=== PATIENT | female | born 1950 | race Caucasian/White ===

== ENCOUNTER 2018-08-07 22:35 | Inpatient (IN) | payer MEDICARE, BC ==
[~2018-08-07] VITALS: Ht 154.9 cm; Wt 79.8 kg
[~2018-08-07 22:35] MED LIST: BACTRIM-DS1 EA ORAL; VANCOMYCIN1 GM/2502 IVPB; VIBRAMYCIN100 MG ORAL
[2018-08-07] MEDS ORDERED: Sodium Chloride 500ML 500 ML IV ONE (23:04)
--- NOTE | 2018-08-07 23:06 | Emergency Room Report ---
History of Present Illness General Chief Complaint: Abdominal Pain Source: Patient Present Illness HPI Patient is a 67-year-old female who presented after increased abdominal discomfort. Patient present increased abdominal distention associated with shortness of breath. She reports having increased anxiety. Patient prior history of chronic anxiety. Patient states that she normally takes marijuana Anable's daily. She reports having increased nausea as well as abdominal discomfort. She had not been having any fever Allergies: Coded Allergies: No Known Allergies (Unverified , 08/13/14) Patient History Past Medical History: see triage record Reviewed Nursing Documentation: PMH: Agreed; PSxH: Agreed Nursing Documentation-PMH Past Medical History: No History, Except For Review of Systems All Other Systems: negative except mentioned in HPI Physical Exam Vital Signs Date Time Temp Pulse Resp B/P (MAP) Pulse Ox O2 Delivery O2 Flow Rate FiO2 08/07/18 22:34 97.5 101 18 115/57 98 Room Air Sp02 EP Interpretation: reviewed, normal General Appearance: normal inspection, well appearing, no apparent distress, alert, GCS 15 Head: atraumatic ENT: normal ENT inspection, hearing grossly normal, normal voice Neck: normal inspection, full range of motion, supple, no bony tend Respiratory: normal inspection, lungs clear, normal breath sounds, no respiratory distress, no retraction, no wheezing Cardiovascular #1: regular rate, rhythm, no edema Gastrointestinal: normal inspection, normal bowel sounds, non tender, soft, no guarding, no hernia, distended Genitourinary: no CVA tenderness Musculoskeletal: normal inspection, back normal, normal range of motion Neurologic: normal inspection, alert, oriented x3, responsive, legislative aide III-XII nml as tested, speech normal Psychiatric: normal inspection, judgement/insight normal, mood/affect normal Skin: normal inspection, normal color, no rash Medical Decision Making Diagnostic Impression: Primary Impression: Pancreatitis ER Course Patient presented for abdominal pain. Differential diagnoses included ischemic bowel, appendicitis, perforated viscus, abdominal aortic aneurysm, pancreatitis , inferior myocardial infarction, viral gastroenteritis. Because of complexity of patient's case laboratory testing and imaging studies were ordered. The patient presented for increased abdominal distention and abdominal pain. The patient's was noted to have prior history of irritable bowel. The patient was given IV fluids as well as IV pain medications.The patient was given IV the antiemetics and pain medications with some improvement in her symptoms. The patient stated that she has a occasional hypoglycemic episodes as well as anxiety. She does report occasional edible marijuana use as well as patient denies any prior episodes of gallstones. The patient states that she eats a low-fat diet at baseline and eats 5-[address] Calvin Escalera was contacted for inpatient management due to panel physician. Dr. Moon was contacted for surgical evaluation. Labs Test 08/07/18 23:10 08/08/18 01:20 White Blood Count 7.8 K/UL (4.8-10.8) Red Blood Count 5.16 M/UL (4.20-5.40) Hemoglobin 15.9 G/DL (12.0-16.0) Hematocrit 45.6 % (37.0-47.0) Mean Corpuscular Volume 88 FL (80-99) Mean Corpuscular Hemoglobin 30.7 PG (27.0-31.0) Mean Corpuscular Hemoglobin Concent 34.8 G/DL (32.0-36.0) Red Cell Distribution Width 10.1 % (11.6-14.8) Platelet Count 148 K/UL (150-450) Mean Platelet Volume 11.2 FL (6.5-10.1) Neutrophils (%) (Auto) 66.6 % (45.0-75.0) Lymphocytes (%) (Auto) 24.4 % (20.0-45.0) Monocytes (%) (Auto) 7.3 % (1.0-10.0) Eosinophils (%) (Auto) 1.0 % (0.0-3.0) Basophils (%) (Auto) 0.7 % (0.0-2.0) Sodium Level 142 MMOL/L (136-145) Potassium Level 3.6 MMOL/L (3.5-5.1) Chloride Level 104 MMOL/L (98-107) Carbon Dioxide Level 27 MMOL/L (21-32) Anion Gap 12 mmol/L (5-15) Blood Urea Nitrogen 13 mg/dL (7-18) Creatinine 1.0 MG/DL (0.55-1.30) Estimat Glomerular Filtration Rate 55.5 mL/min (>60) Glucose Level 134 MG/DL (74-106) Calcium Level 8.9 MG/DL (8.5-10.1) Total Bilirubin 0.8 MG/DL (0.2-1.0) Aspartate Amino Transf (AST/SGOT) 75 U/L (15-37) Alanine Aminotransferase (ALT/SGPT) 71 U/L (12-78) Alkaline Phosphatase 34 U/L (46-116) Troponin I 0.000 ng/mL (0.000-0.056) Total Protein 7.6 G/DL (6.4-8.2) Albumin 3.7 G/DL (3.4-5.0) Globulin 3.9 g/dL Albumin/Globulin Ratio 0.9 (1.0-2.7) Lipase 1381 U/L (73-393) Urine Color Pale yellow Urine Appearance Slightly cloudy Urine pH 8 (4.5-8.0) Urine Specific [place] 1.010 (1.005-1.035) Urine Protein 1+ (NEGATIVE) Urine Glucose (UA) Negative (NEGATIVE) Urine Ketones Negative (NEGATIVE) Urine Blood Negative (NEGATIVE) Urine Nitrite Negative (NEGATIVE) Urine Bilirubin Negative (NEGATIVE) Urine Urobilinogen Normal MG/DL (0.0-1.0) Urine Leukocyte Esterase 1+ (NEGATIVE) Urine RBC 0-2 /HPF (0 - 2) Urine WBC 0-2 /HPF (0 - 2) Urine Squamous Epithelial Cells Few /LPF (NONE/OCC) Urine Amorphous Sediment Many /LPF (NONE) Urine Bacteria Moderate /HPF (NONE) Last Vital Signs Date Time Temp Pulse Resp B/P (MAP) Pulse Ox O2 Delivery O2 Flow Rate FiO2 08/07/18 22:34 97.5 101 18 115/57 98 Room Air Status: improved Disposition: HOME, SELF-CARE Condition: Stable Mikie Sprague MD Aug 07, 2018 23:06
[2018-08-07] MEDS ORDERED: Dicyclomine HCl 10mg/5ml oral soln ORAL ONE (23:15)
[2018-08-07] MEDS ORDERED: DiphenhydrAMINE 50mg/ml Inj IVP ONE (23:15)
[2018-08-07] MEDS ORDERED: Lidocaine 2% Visc 15ml soln ORAL ONE (23:15)
[2018-08-07] MEDS ORDERED: Mylanta II UD 30ml ORAL ONE (23:15)
[2018-08-07] MEDS ORDERED: LORazepam 1mg tab ORAL ONE (23:15)
[2018-08-07 23:35] LABS: BASOPHILS % (AUTO) 0.7 % (0.0-2.0); HEMATOCRIT 45.6 % (37.0-47.0); HEMOGLOBIN 15.9 G/DL (12.0-16.0); LYMPHOCYTES % (AUTO) 24.4 % (20.0-45.0); MEAN CORPUSCULAR VOLUME 88 FL (80-99); MONOCYTES % (AUTO) 7.3 % (1.0-10.0); NEUTROPHILS % (AUTO) 66.6 % (45.0-75.0); PLATELET COUNT 148 K/UL (150-450); RED BLOOD COUNT 5.16 M/UL (4.20-5.40); RED CELL DISTRIBUTION WIDTH 10.1 % (11.6-14.8); WHITE BLOOD COUNT 7.8 K/UL (4.8-10.8)
[2018-08-07 23:50] LABS: ANION GAP 12 mmol/L (5-15); BLOOD UREA NITROGEN 13 mg/dL (7-18); CALCIUM 8.9 MG/DL (8.5-10.1); CARBON DIOXIDE 27 MMOL/L (21-32); CHLORIDE 104 MMOL/L (98-107); POTASSIUM 3.6 MMOL/L (3.5-5.1); SODIUM 142 MMOL/L (136-145)
[2018-08-07 23:55] LABS: ALANINE AMINOTRANSFERASE 71 U/L (12-78); ALBUMIN 3.7 G/DL (3.4-5.0); ALBUMIN/GLOBULIN RATIO 0.9 (1.0-2.7); ALKALINE PHOSPHATASE 34 U/L (46-116); ASPARTATE AMINO TRANSFERASE 75 U/L (15-37); BILIRUBIN,TOTAL 0.8 MG/DL (0.2-1.0)
[2018-08-08 00:15] VITALS: BP 128/65
[2018-08-08] MEDS ORDERED: Isovue-300 100ml vial INJ PRN (00:30)
[2018-08-08] MEDS ORDERED: Morphine Sulfate 4mg/ml Inj (IV/IM USE ONLY) IVP ONE (00:30)
[2018-08-08 01:28] LABS: APPEARANCE,URINE SLIGHTLY CLOUDY; BILIRUBIN, URINE NEGATIVE (NEGATIVE); COLOR,URINE PALE YELLOW; GLUCOSE, URINE (UA) NEGATIVE (NEGATIVE); KETONES,URINE NEGATIVE (NEGATIVE); LEUKOCYTE ESTERASE ,URINE 1+ (NEGATIVE); NITRITE,URINE NEGATIVE (NEGATIVE); PH,URINE 8 (4.5-8.0); PROTEIN,URINE 1+ (NEGATIVE); UROBILINOGEN,URINE NORMAL MG/DL (0.0-1.0)
[2018-08-08 02:00] VITALS: BP 133/61
[2018-08-08] MEDS ORDERED: TAMOXIFEN CITRA10 MG ORAL (02:08)
[2018-08-08] MEDS ORDERED: LORAZEPAM1 MG ORAL (03:31)
[2018-08-08] MEDS ORDERED: AMBIEN10 M1 ORAL (03:31)
[2018-08-08 04:00] VITALS: BP 149/86
[2018-08-08] MEDS: D5NS 1,000 ML IV SCH ×3 (04:45→20:45)
[2018-08-08] MEDS ORDERED: LORazepam 1mg tab ORAL PRN ×3 (05:00→10:30)
[2018-08-08] MEDS ORDERED: Morphine Sulfate 2mg/ml Inj IVP PRN (05:00)
[2018-08-08] MEDS ORDERED: Zolpidem 5mg tab ORAL PRN (05:00)
[2018-08-08] MEDS: Piperacillin/Tazobactam 3.375 GM in NS 110 ML IVPB SCH ×3 (05:37→21:45)
[2018-08-08 08:00] VITALS: BP 118/73
--- NOTE | 2018-08-08 08:41 | General Progress Note ---
Subjective Allergies: Coded Allergies: No Known Allergies (Unverified , 08/13/14) Objective Last 24 Hour Vital Signs Date Time Temp Pulse Resp B/P (MAP) Pulse Ox O2 Delivery O2 Flow Rate FiO2 08/08/18 04:00 98.1 103 18 149/86 (107) 95 08/08/18 03:43 Room Air 08/08/18 02:15 98.3 88 18 133/61 98 Room Air 08/08/18 02:00 98.3 88 18 133/61 98 Room Air 08/08/18 00:15 97.5 18 128/65 98 Room Air 08/07/18 22:45 101 18 Room Air 08/07/18 22:34 97.5 101 18 115/57 98 Room Air Intake and Output 08/07/18 08/08/18 19:00 07:00 Intake Total 500 ml Balance 500 ml IV Total 500 ml # Voids 1 Laboratory Tests 08/07/18 23:10: White Blood Count 7.8, Red Blood Count 5.16, Hemoglobin 15.9, Hematocrit 45.6, Mean Corpuscular Volume 88, Mean Corpuscular Hemoglobin 30.7, Mean Corpuscular Hemoglobin Concent 34.8, Red Cell Distribution Width 10.1L, Platelet Count 148L , Mean Platelet Volume 11.2H, Neutrophils (%) (Auto) 66.6, Lymphocytes (%) (Auto ) 24.4, Monocytes (%) (Auto) 7.3, Eosinophils (%) (Auto) 1.0, Basophils (%) ( Auto) 0.7, Sodium Level 142, Potassium Level 3.6, Chloride Level 104, Carbon Dioxide Level 27, Anion Gap 12, Blood Urea Nitrogen 13, Creatinine 1.0, Estimat Glomerular Filtration Rate 55.5, Glucose Level 134H, Calcium Level 8.9, Total Bilirubin 0.8, Aspartate Amino Transf (AST/SGOT) 75H, Alanine Aminotransferase ( ALT/SGPT) 71, Alkaline Phosphatase 34L, Troponin I 0.000, Total Protein 7.6, Albumin 3.7, Globulin 3.9, Albumin/Globulin Ratio 0.9L, Lipase 1381H 08/08/18 01:20: Urine Color Pale yellow, Urine Appearance Slightly cloudy, Urine pH 8, Urine Specific [place] 1.010, Urine Protein 1+H, Urine Glucose (UA) Negative, Urine Ketones Negative, Urine Blood Negative, Urine Nitrite Negative, Urine Bilirubin Negative, Urine Urobilinogen Normal, Urine Leukocyte Esterase 1+H, Urine RBC 0-2 , Urine WBC 0-2, Urine Squamous Epithelial Cells Few, Urine Amorphous Sediment ManyH, Urine Bacteria ModerateH Height (Feet): 5 Height (Inches): 2.00 Weight (Pounds): 180 Roel Jefferson MD Aug 08, 2018 08:40
[2018-08-08] MEDS ORDERED: Gadavist 7.5mMol/7.5ml vial IV PRN (08:45)
[2018-08-08] MEDS: Tamoxifen 10mg tab ORAL SCH (09:00)
[2018-08-08] MEDS: Heparin 5000 units/ml inj SUBQ SCH ×2 (09:00→20:14)
--- NOTE | 2018-08-08 09:17 | Diagnostic Imaging Report ---
Indication: Abdominal pain Technique: Continuous helical transaxial imaging of the abdomen and pelvis was obtained from the lung bases to the pubic symphysis during intravenous contrast administration. Coronal 2-D reformats were also obtained. Study obtained in a Siemens sensation [address] Automatic Exposure Control was utilized. Total Dose length Product (DLP): 929.[address] Dose Index Volume (CTDIvol): 18.4 mGy Comparison: None Findings: Multiple small gallstones are demonstrated. There are no definite biliary ductal dilatation identified. Mild basal atelectasis noted. Trace pericardial fluid demonstrated. Stomach is moderately distended. No abnormalities of the pancreas or spleen identified. There are small hypodensities likely cysts within both kidneys. A small hiatal hernia is present. No evidence of bowel obstruction or ascites or free fluid. Urinary bladder is unremarkable in appearance. Appendix is normal. Mild aortoiliac calcifications are present. IMPRESSION: Cholelithiasis. Small hiatal hernia. Mild atherosclerotic vascular disease. Trace pericardial fluid Mild basal atelectasis The CT scanner at [facility] is accredited by the [employer] and the scans are performed using dose optimization techniques as appropriate to a performed exam including Automatic Exposure control.
[2018-08-08 09:53] LABS: BASOPHILS % (AUTO) 0.6 % (0.0-2.0); EOSINOPHILS % (AUTO) 0.3 % (0.0-3.0); HEMATOCRIT 42.1 % (37.0-47.0); HEMOGLOBIN 14.3 G/DL (12.0-16.0); MEAN CORPUSCULAR VOLUME 89 FL (80-99); MONOCYTES % (AUTO) 8.4 % (1.0-10.0); NEUTROPHILS % (AUTO) 76.7 % (45.0-75.0); PLATELET COUNT 122 K/UL (150-450); RED BLOOD COUNT 4.74 M/UL (4.20-5.40); RED CELL DISTRIBUTION WIDTH 10.4 % (11.6-14.8); WHITE BLOOD COUNT 6.7 K/UL (4.8-10.8)
[2018-08-08 10:23] LABS: ALANINE AMINOTRANSFERASE 360 U/L (12-78); ALBUMIN 3.4 G/DL (3.4-5.0); ALKALINE PHOSPHATASE 34 U/L (46-116); ANION GAP 9 mmol/L (5-15); ASPARTATE AMINO TRANSFERASE 496 U/L (15-37); BILIRUBIN,TOTAL 2.3 MG/DL (0.2-1.0); BLOOD UREA NITROGEN 9 mg/dL (7-18); CALCIUM 8.6 MG/DL (8.5-10.1); CARBON DIOXIDE 24 MMOL/L (21-32); CHLORIDE 108 MMOL/L (98-107); CREATININE 0.8 MG/DL (0.55-1.30); POTASSIUM 3.8 MMOL/L (3.5-5.1); SODIUM 141 MMOL/L (136-145)
[2018-08-08 10:26] LABS: BILIRUBIN,DIRECT 1.1 MG/DL (0.0-0.3)
--- NOTE | 2018-08-08 14:07 | Diagnostic Imaging Report ---
Indication: Abdominal pain. Gallstones. History of breast cancer and hepatitis C Technique: MRI of the abdomen was performed in a 1.5 Audrey magnet. Pulse sequences obtained include coronal and axial T2 single shot fast spin echo breathhold and respiratory gated coronal T2 3-D M.R.C.P.; this data set was displayed in different projections or MIPs. In addition, multiple coronal oblique thin T2 weighted, fat saturated SE sequences obtained through the CBD. In addition, pre- and post gadolinium dynamic axial T1 lava performed. Comparison: None Findings: There is no biliary ductal dilatation identified. There is no evidence of choledocholithiasis. There is mild thickening of the wall the gallbladder and multiple tiny gallstones demonstrated. Correlate for cholecystitis. There are multiple small cysts present within the liver there. There are few cysts within the kidneys. The pancreas is unremarkable. There is no adrenal mass. There is no hydronephrosis. Spleen appears unremarkable. There is no ascites. Small hiatal hernia is present. Trace pericardial effusion is present. Trace bilateral pleural effusions are present. IMPRESSION: No evidence of choledocholithiasis or biliary ductal dilatation. Cholelithiasis with wall thickening. Cholecystitis not excluded. Correlate clinically. Trace pericardial effusion Trace bilateral pleural effusions. Multiple liver and renal cysts. Hiatal hernia
[2018-08-08 16:00] VITALS: BP 111/70
--- NOTE | 2018-08-08 16:15 | History and Physical Report ---
DATE OF ADMISSION: 08/08/2018 CHIEF COMPLAINT: Pancreatitis. HISTORY OF PRESENT ILLNESS: The patient is a 67-year-old female. She has a prior history of breast cancer and irritable bowel syndrome who presented with complaints of one day of severe mid epigastric abdominal pain. According to the patient, she has a history of IBS and occasionally gets episodes of diarrhea and constipation as well as cramping. This pain though was significantly different and more severe she had one similar episode approximately about a week ago that resolved spontaneously. On this occasion, she her pain was so severe she presented to the emergency room. On evaluation there, her laboratories were significant for a lipase of 1400. CAT scan was done and official readings are not back but there are reports of gallstones. The patient is now NPO, has been given IV pain medications and antiemetics, admitted for further evaluation for presumptive pancreatitis. The patient's does admit to drinking a small shot glass of vodka once a night. PAST MEDICAL HISTORY: As above. PAST SURGICAL HISTORY: Includes lumpectomy. CURRENT MEDICATIONS: Reconciled and reviewed. ALLERGIES: None. FAMILY HISTORY: Significant for father of metastatic cancer. SOCIAL HISTORY: The patient smokes 1 to 2 cigarettes a day. She drinks a small shot glass of vodka once a day. No drugs. REVIEW OF SYSTEMS: GENERAL: No fevers or chills. HEENT: No headaches or visual changes. CARDIOPULMONARY: No chest pain or shortness of breath. GASTROINTESTINAL: Positive abdominal pain. Mild nausea. No vomiting. No melena. No bright red blood per rectum. GENITOURINARY: No urgency or frequency. MUSCULOSKELETAL: No joint pain or swelling. NEUROLOGIC: No evidence of seizures. PHYSICAL EXAMINATION: VITAL SIGNS: Temperature 98, pulse 103, respirations 18, blood pressure 149/86. GENERAL: The patient is well developed, no apparent distress. Alert and oriented x4. NECK: Supple. HEART: Regular rate and rhythm. LUNGS: Clear. ABDOMEN: Soft. Minimally tender in the midepigastric region. There is no rebound or guarding. Bowel sounds are normoactive. EXTREMITIES: No clubbing or cyanosis. LABORATORY AND DIAGNOSTIC DATA: Sodium 142, potassium 3.6, BUN 13, creatinine is 1, glucose 134. AST 75, ALT 71, alkaline phosphatase 34. Lipase is 1381. UA was clear. CT scan results are currently pending. ASSESSMENT: This is a pleasant female, admitted with complaints of pancreatitis: 1. Acute pancreatitis suspect secondary to gallstones, cannot rule out some contribution from the patient's alcohol use. 2. Irritable bowel syndrome. 3. History of breast cancer. PLAN: IV fluids, NPO, IV pain medications. Monitor lipase level. We will follow up the official reading from the CAT scan. Plan of care was discussed with the patient at length at the bedside. Calvin Escalera M.D. DR: Elida JOB#: [id number] CC:
[2018-08-08 20:09] VITALS: BP 122/70
--- NOTE | 2018-08-08 21:30 | Consultation ---
History of Present Illness General Date patient seen: Aug 08, 2018 Chief Complaint: Abdominal Pain Reason for Consultation: gallstone pancreatitis Present Illness HPI 67 year old female with pmx of breast ca s/p resection and long history of IBS since childhood presented with worsening abdominal pain. States RUQ discomfort with radiation to back for 1-2 days prior to admission. denies nausea and emesis and she has a significant anxiety for n/v. has had prior similar symptoms but never with such severity and unsure if related to IBS. Noted to have cholelithiasis, elevated lft's and lipase. denies etoh history. surgery called to evaluate. patient seen, chart reviewed, patient examined. Allergies: Coded Allergies: No Known Allergies (Unverified , 08/13/14) Medication History Scheduled Lorazepam* (Lorazepam*), 1 MG ORAL HS, (Reported) Tamoxifen Citrate* (Nolvadex*), 10 MG ORAL TWICE A DAY, (Reported) Trimethoprim/Sulfamethoxazole (Bactrim Ds Tablet), 1 TAB ORAL TWICE A DAY, ( Reported) Vancomycin Hcl/D5w (Vancomycin-D5w 1 G/250 Ml), 1 GM IVPB EVERY 12 HOURS, ( Reported) Scheduled PRN Zolpidem Tartrate* (Ambien*), 10 MG ORAL HS PRN for Insomnia, (Reported) Patient History History Provided By: Patient, Medical Record, PMD Healthcare decision maker GRACIA NUGENT / CHEPE [place], Resuscitation status Full Code Advanced Directive on File No Past Medical/Surgical History Past Medical/Surgical History: (1) Acute gallstone pancreatitis (2) Abscess (3) Cellulitis (4) Rash and other nonspecific skin eruption (5) Cellulitis (6) Pancreatitis Review of Systems All Other Systems: negative except mentioned in HPI Physical Exam General Appearance: no apparent distress, alert Lines, tubes and drains: peripheral HEENT: normocephalic, mucous membranes moist Neck: normal inspection Respiratory/Chest: normal breath sounds, no respiratory distress, no accessory muscle use Cardiovascular/Chest: normal rate, regular rhythm Abdomen: normal bowel sounds, non tender, soft, no organomegaly, no mass Extremities: normal inspection, no calf tenderness Skin Exam: warm/dry Neurologic: alert, oriented x 3 Last 24 Hour Vital Signs Date Time Temp Pulse Resp B/P (MAP) Pulse Ox O2 Delivery O2 Flow Rate FiO2 08/08/18 21:06 Room Air 08/08/18 20:09 97.5 66 17 122/70 (87) 96 08/08/18 16:00 97.6 55 16 111/70 (84) 98 08/08/18 09:00 Room Air 08/08/18 08:00 97.7 73 16 118/73 (88) 96 08/08/18 04:00 98.1 103 18 149/86 (107) 95 08/08/18 03:43 Room Air 08/08/18 02:15 98.3 88 18 133/61 98 Room Air 08/08/18 02:00 98.3 88 18 133/61 98 Room Air 08/08/18 00:15 97.5 18 128/65 98 Room Air 08/07/18 22:45 101 18 Room Air 08/07/18 22:34 97.5 101 18 115/57 98 Room Air Intake and Output 08/07/18 08/08/18 19:00 07:00 Intake Total 500 ml Balance 500 ml IV Total 500 ml # Voids 1 Laboratory Tests Test 08/07/18 23:10 08/08/18 01:20 08/08/18 09:10 White Blood Count 7.8 K/UL (4.8-10.8) 6.7 K/UL (4.8-10.8) Red Blood Count 5.16 M/UL (4.20-5.40) 4.74 M/UL (4.20-5.40) Hemoglobin 15.9 G/DL (12.0-16.0) 14.3 G/DL (12.0-16.0) Hematocrit 45.6 % (37.0-47.0) 42.1 % (37.0-47.0) Mean Corpuscular Volume 88 FL (80-99) 89 FL (80-99) Mean Corpuscular Hemoglobin 30.7 PG (27.0-31.0) 30.1 PG (27.0-31.0) Mean Corpuscular Hemoglobin Concent 34.8 G/DL (32.0-36.0) 33.9 G/DL (32.0-36.0) Red Cell Distribution Width 10.1 % (11.6-14.8) L 10.4 % (11.6-14.8) L Platelet Count 148 K/UL (150-450) L 122 K/UL (150-450) L Mean Platelet Volume 11.2 FL (6.5-10.1) H 11.6 FL (6.5-10.1) H Neutrophils (%) (Auto) 66.6 % (45.0-75.0) 76.7 % (45.0-75.0) H Lymphocytes (%) (Auto) 24.4 % (20.0-45.0) 14.0 % (20.0-45.0) L Monocytes (%) (Auto) 7.3 % (1.0-10.0) 8.4 % (1.0-10.0) Eosinophils (%) (Auto) 1.0 % (0.0-3.0) 0.3 % (0.0-3.0) Basophils (%) (Auto) 0.7 % (0.0-2.0) 0.6 % (0.0-2.0) Sodium Level 142 MMOL/L (136-145) 141 MMOL/L (136-145) Potassium Level 3.6 MMOL/L (3.5-5.1) 3.8 MMOL/L (3.5-5.1) Chloride Level 104 MMOL/L (98-107) 108 MMOL/L (98-107) H Carbon Dioxide Level 27 MMOL/L (21-32) 24 MMOL/L (21-32) Anion Gap 12 mmol/L (5-15) 9 mmol/L (5-15) Blood Urea Nitrogen 13 mg/dL (7-18) 9 mg/dL (7-18) Creatinine 1.0 MG/DL (0.55-1.30) 0.8 MG/DL (0.55-1.30) Estimat Glomerular Filtration Rate 55.5 mL/min (>60) > 60 mL/min (>60) Glucose Level 134 MG/DL (74-106) H 119 MG/DL (74-106) H Calcium Level 8.9 MG/DL (8.5-10.1) 8.6 MG/DL (8.5-10.1) Total Bilirubin 0.8 MG/DL (0.2-1.0) 2.3 MG/DL (0.2-1.0) H Aspartate Amino Transf (AST/SGOT) 75 U/L (15-37) H 496 U/L (15-37) H Alanine Aminotransferase (ALT/SGPT) 71 U/L (12-78) 360 U/L (12-78) H Alkaline Phosphatase 34 U/L (46-116) L 34 U/L (46-116) L Troponin I 0.000 ng/mL (0.000-0.056) Total Protein 7.6 G/DL (6.4-8.2) 6.8 G/DL (6.4-8.2) Albumin 3.7 G/DL (3.4-5.0) 3.4 G/DL (3.4-5.0) Globulin 3.9 g/dL 3.4 g/dL Albumin/Globulin Ratio 0.9 (1.0-2.7) L 1.0 (1.0-2.7) Lipase 1381 U/L (73-393) H 489 U/L (73-393) H Urine Color Pale yellow Urine Appearance Slightly cloudy Urine pH 8 (4.5-8.0) Urine Specific [place] 1.010 (1.005-1.035) Urine Protein 1+ (NEGATIVE) H Urine Glucose (UA) Negative (NEGATIVE) Urine Ketones Negative (NEGATIVE) Urine Blood Negative (NEGATIVE) Urine Nitrite Negative (NEGATIVE) Urine Bilirubin Negative (NEGATIVE) Urine Urobilinogen Normal MG/DL (0.0-1.0) Urine Leukocyte Esterase 1+ (NEGATIVE) H Urine RBC 0-2 /HPF (0 - 2) Urine WBC 0-2 /HPF (0 - 2) Urine Squamous Epithelial Cells Few /LPF (NONE/OCC) Urine Amorphous Sediment Many /LPF (NONE) H Urine Bacteria Moderate /HPF (NONE) H Direct Bilirubin 1.1 MG/DL (0.0-0.3) H Height (Feet): 5 Height (Inches): 2.00 Weight (Pounds): 180 Medications Current Medications Medications (Trade) Dose Ordered Sig/Francisca Route PRN Reason Start Time Stop Time Status Last Admin Dose Admin Dextrose/Sodium Chloride 1,000 ml @ 125 mls/hr Q8H IV 08/08/18 04:45 09/07/18 04:44 08/08/18 20:45 Gadobutrol (Gadavist) 7.5 mmol ONCE PRN IV radiology use 08/08/18 08:45 08/10/18 08:44 Heparin Sodium (Porcine) (Heparin 5000 units/ml) 5,000 units EVERY 12 HOURS SUBQ 08/08/18 09:00 09/07/18 08:59 Iopamidol (Isovue-300 100ml) 100 ml NOW PRN INJ Radiology Procedure 08/08/18 00:30 Lorazepam (Ativan) 1 mg BEDTIME PRN ORAL For Anxiety 08/08/18 05:00 08/15/18 04:59 Morphine Sulfate (Morphine Sulfate) 2 mg Q3H PRN IVP For Pain 08/08/18 05:00 08/15/18 04:59 Ondansetron HCl (Zofran) 4 mg Q4H PRN IVP Nausea & Vomiting 08/08/18 05:00 09/07/18 04:59 Piperacillin Sod/ Tazobactam Sod 3.375 gm/Sodium Chloride 110 ml @ 27.5 mls/hr EVERY 8 HOURS IVPB 08/08/18 06:00 08/13/18 05:59 08/08/18 13:56 Tamoxifen Citrate (Nolvadex) 10 mg DAILY ORAL 08/08/18 09:00 09/07/18 08:59 Zolpidem Tartrate (Ambien) 5 mg HSPRN PRN ORAL Insomnia 08/08/18 05:00 08/15/18 04:59 Assessment/Plan Problem List: (1) Acute gallstone pancreatitis Assessment & Plan: 67 year old female with Acute gallstone pancreatitis Afebrile, HD stable, labs noted. MRCP noted. likely passed stone fortunately clinically improving above findings discussed with patient in detail and spent time with her and at bedside discussing options given acute episode which is resolving would recommend cholecystectomy prior to discharge patient expressed understanding and after being offered surgical vs non surgical management stated that she would never want an episode like this again and would prefer surgery prior to discharge. will tentatively schedule for tomorrow as long as labs improved and exam stable npo iv fluids AM labs consent thank you. will follow with recs. ICD Codes: K85.10 - Biliary acute pancreatitis without necrosis or infection SNOMED: [id number] Status: stable Bernabe Moon Aug 08, 2018 21:30
--- NOTE | 2018-08-08 21:32 | Pre-Procedure Note/Attestation ---
Pre-Procedure Note/Attestation Complete Prior to Procedure Planned Procedure: not applicable Procedure Narrative: laparoscopic cholecystectomy possible open Indications for Procedure Pre-Operative Diagnosis: acute gallstone pancreatitis Attestation I attest that I discussed the nature of the procedure; its benefits; risks and complications; and alternatives (and the risks and benefits of such alternatives ), prior to the procedure, with the patient (or the patient's legal access services representative). I attest that, if there was a reasonable possibility of needing a blood transfusion, the patient (or the patient's legal access services representative) was given the [facility] standardized written summary, pursuant to the Bharathi Robert Blood Safety Act ([place] Health and Safety Code # 1645, as amended). I attest that I re-evaluated the patient just prior to the surgery and that there has been no change in the patient's H&P, except as documented below: Bernabe Moon Aug 08, 2018 21:32
[2018-08-09] VITALS (12 sets, daily range): BP systolic 110–135; BP diastolic 57–80
--- NOTE | 2018-08-09 01:45 | Consultation ---
DATE OF CONSULTATION: 08/08/2018 GASTROENTEROLOGY CONSULTATION CHIEF COMPLAINT: I was asked to see this patient by Dr. Calvin Escalera for evaluation of pancreatitis. HISTORY OF PRESENT ILLNESS: The patient is a 67-year-old white woman, who was in her usual state of health until one day prior to admission when she noticed severe mid epigastric abdominal pain after dinner about 8:30 p.m. The patient thought this was her old irritable bowel syndrome symptom, but soon after that came to the emergency room because of the pain and was found to have an elevated lipase level and was therefore admitted. The patient states that she had a similar pain to this about a week ago and self-treated with activated charcoal and proton pump inhibitor and that one resolved uneventfully. She has no nausea or vomiting. She does drink one glass of alcohol nightly, but her CT scan also showed evidence of cholelithiasis. Subsequently, the MRI was done showing thickened gallbladder wall and the cholelithiasis as well. The patient feels better now after an overnight fast. She has had no nausea or vomiting so far as an patient. The patient was previously seen by Dr. Pancho Blunt for her long-term gastrointestinal complaints, which she describes as irritable bowel syndrome. She did have pancreatitis before. Her last colonoscopy was about two years ago by Dr. Blunt. PAST MEDICAL HISTORY: History of irritable bowel syndrome, history of breast cancer, status post lumpectomy, history of hepatitis C positivity, which was treated and eradicated two years ago. FAMILY HISTORY: Positive for bladder cancer. SOCIAL HISTORY: The patient is . She drinks one beverage of alcohol daily and she smokes 1 to 2 cigarettes daily. ALLERGIES: None. MEDICATIONS: Include during week days and Ativan 1 to 1.5 mg during weekends. REVIEW OF SYSTEMS: Otherwise negative. PHYSICAL EXAMINATION: GENERAL: A well-developed, well-nourished white woman, seen in her room with her . HEENT: Normocephalic and atraumatic. Sclerae are anicteric. NECK: Supple. CHEST: Revealed coarse breath sounds. CARDIOVASCULAR: Revealed regular rate and rhythm. ABDOMEN: Soft and flat with minimal epigastric abdominal tenderness without guarding or rebound. EXTREMITIES: Revealed no edema. NEUROLOGIC: Grossly nonfocal. LABORATORY AND DIAGNOSTIC DATA: Laboratory data and imaging studies were noted. ASSESSMENT: This patient appears to be affected by an attack of acute pancreatitis. Her lipase is declining rapidly and therefore she is resolving her pancreatitis. The etiology of the rise in her liver tests is unclear, but she may have passed a stone with resultant sphincter spasm. Inflammatory changes in the head of the pancreas can also result in the same. If so, then these changes will be transient and should resolve. There was no stone seen in the common bile duct on the MRI. Once the above chemical findings have improved, then the patient would be a good candidate for laparoscopic cholecystectomy for definitive treatment. It is presumed that her pancreatitis is gallstone in nature since she had the changes seen on her imaging studies. She does have a daily intake of alcohol, but it does not appear to be excessive enough to cause alcoholic pancreatitis. Nonetheless, the patient was advised to cut down her drinking. The patient is very concerned about having nausea postoperatively. I advised her that nausea is a relatively common symptom after gastrointestinal surgery that can be treated with antiemetics until resolves. RECOMMENDATIONS: 1. Keep the patient NPO. 2. Follow laboratory parameters and exam. 3. Possible laparoscopic cholecystectomy tomorrow if laboratory parameters improve. 4. The patient was advised to reduce alcohol intake. Thank you for asking me to participate in the care of this patient. Roel Jefferson M.D. DR: MARCLEO JOB#: [id number] CC:
[2018-08-09] MEDS: D5NS 1,000 ML IV SCH ×2 (04:45→13:00)
[2018-08-09] MEDS: Piperacillin/Tazobactam 3.375 GM in NS 110 ML IVPB SCH ×3 (05:52→21:01)
[2018-08-09 07:37] LABS: HEMATOCRIT 40.4 % (37.0-47.0); MEAN CORPUSCULAR VOLUME 89 FL (80-99); PLATELET COUNT 85 K/UL (150-450); RED BLOOD COUNT 4.56 M/UL (4.20-5.40); RED CELL DISTRIBUTION WIDTH 10.1 % (11.6-14.8); WHITE BLOOD COUNT 5.8 K/UL (4.8-10.8)
[2018-08-09 07:41] LABS: INR 1.3 (0.9-1.1)
[2018-08-09 08:00] LABS: ALANINE AMINOTRANSFERASE 273 U/L (12-78); ALBUMIN 3.2 G/DL (3.4-5.0); ALKALINE PHOSPHATASE 36 U/L (46-116); ANION GAP 9 mmol/L (5-15); ASPARTATE AMINO TRANSFERASE 142 U/L (15-37); BILIRUBIN,TOTAL 1.6 MG/DL (0.2-1.0); BLOOD UREA NITROGEN 4 mg/dL (7-18); CARBON DIOXIDE 24 MMOL/L (21-32); CHLORIDE 106 MMOL/L (98-107); CREATININE 0.8 MG/DL (0.55-1.30); POTASSIUM 3.5 MMOL/L (3.5-5.1); SODIUM 139 MMOL/L (136-145)
[2018-08-09 08:02] LABS: BILIRUBIN,DIRECT 0.4 MG/DL (0.0-0.3)
--- NOTE | 2018-08-09 08:23 | General Progress Note ---
Assessment/Plan Problem List: (1) Acute gallstone pancreatitis ICD Codes: K85.10 - Biliary acute pancreatitis without necrosis or infection SNOMED: [id number] Status: stable, progressing Assessment/Plan 1 amp 50 pushed stable for surgery lipase normal "terrified" of feeling nauseous Subjective ROS Limited/Unobtainable: No Constitutional: Reports: malaise, weakness HEENT: Reports: no symptoms Cardiovascular: Reports: no symptoms Respiratory: Reports: no symptoms Gastrointestinal/Abdominal: Reports: no symptoms Genitourinary: Reports: no symptoms Neurologic/Psychiatric: Reports: no symptoms Endocrine: Reports: no symptoms Hematologic/Lymphatic: Reports: no symptoms Allergies: Coded Allergies: No Known Allergies (Unverified , 08/13/14) All Systems: reviewed and negative except above Subjective surgery noted. abd pain better. c/o hypoglycemia "i known how i feel and im low right now." accu check 128. no cp/sob Objective Last 24 Hour Vital Signs Date Time Temp Pulse Resp B/P (MAP) Pulse Ox O2 Delivery O2 Flow Rate FiO2 08/09/18 00:33 99.7 84 17 110/62 (78) 99 08/08/18 21:06 Room Air 08/08/18 20:09 97.5 66 17 122/70 (87) 96 08/08/18 16:00 97.6 55 16 111/70 (84) 98 08/08/18 09:00 Room Air Intake and Output 08/08/18 08/09/18 19:00 07:00 Intake Total 125 ml 1110.0 ml Balance 125 ml 1110.0 ml IV Total 125 ml 1110.0 ml # Voids 3 3 Laboratory Tests 08/08/18 09:10: White Blood Count 6.7, Red Blood Count 4.74, Hemoglobin 14.3, Hematocrit 42.1, Mean Corpuscular Volume 89, Mean Corpuscular Hemoglobin 30.1, Mean Corpuscular Hemoglobin Concent 33.9, Red Cell Distribution Width 10.4L, Platelet Count 122L , Mean Platelet Volume 11.6H, Neutrophils (%) (Auto) 76.7H, Lymphocytes (%) ( Auto) 14.0L, Monocytes (%) (Auto) 8.4, Eosinophils (%) (Auto) 0.3, Basophils (% ) (Auto) 0.6, Sodium Level 141, Potassium Level 3.8, Chloride Level 108H, Carbon Dioxide Level 24, Anion Gap 9, Blood Urea Nitrogen 9, Creatinine 0.8, Estimat Glomerular Filtration Rate > 60, Glucose Level 119H, Calcium Level 8.6, Total Bilirubin 2.3H, Direct Bilirubin 1.1H, Aspartate Amino Transf (AST/SGOT) 496H, Alanine Aminotransferase (ALT/SGPT) 360H, Alkaline Phosphatase 34L, Total Protein 6.8, Albumin 3.4, Globulin 3.4, Albumin/Globulin Ratio 1.0, Lipase 489H 08/09/18 06:56: White Blood Count 5.8, Red Blood Count 4.56, Hemoglobin 14.0, Hematocrit 40.4, Mean Corpuscular Volume 89, Mean Corpuscular Hemoglobin 30.7, Mean Corpuscular Hemoglobin Concent 34.6, Red Cell Distribution Width 10.1L, Platelet Count 85L, Mean Platelet Volume 11.2H, Neutrophils (%) (Auto) , Lymphocytes (%) (Auto) , Monocytes (%) (Auto) , Eosinophils (%) (Auto) , Basophils (%) (Auto) , Sodium Level 139, Potassium Level 3.5, Chloride Level 106, Carbon Dioxide Level 24, Anion Gap 9, Blood Urea Nitrogen 4L, Creatinine 0.8, Estimat Glomerular Filtration Rate > 60, Glucose Level 112H, Calcium Level 8.0L, Total Bilirubin 1.6H, Direct Bilirubin 0.4H, Aspartate Amino Transf (AST/SGOT) 142H, Alanine Aminotransferase (ALT/SGPT) 273H, Alkaline Phosphatase 36L, Total Protein 6.5, Albumin 3.2L, Globulin 3.3, Albumin/Globulin Ratio 1.0, Lipase 106, Neutrophils % (Manual) [Pending], Lymphocytes % (Manual) [Pending], Platelet Estimate [ Pending], Platelet Morphology [Pending], Prothrombin Time 13.6H, Prothromb Time International Ratio 1.3H, Activated Partial Thromboplast Time 24 Height (Feet): 5 Height (Inches): 2.00 Weight (Pounds): 176 General Appearance: WD/WN, alert Neck: supple Cardiovascular: regular rhythm Respiratory/Chest: lungs clear Abdomen: normal bowel sounds, non tender, soft, no organomegaly Edema: no edema noted Arm (L), no edema noted Arm (R), no edema noted Leg (L), no edema noted Leg (R), no edema noted Pedal (L), no edema noted Pedal (R), no edema noted Generalized Calvin Escalera MD Aug 09, 2018 08:23
[2018-08-09] MEDS: Tamoxifen 10mg tab ORAL SCH (08:27)
[2018-08-09] MEDS ORDERED: Metoclopramide 10mg/2ml Inj IVP PRN (08:30)
--- NOTE | 2018-08-09 10:12 | Anethesia Preoperative Eval ---
Anesthesia Pre-op PMH/ROS General Date of Evaluation: Aug 09, 2018 Time of Evaluation: 10:07 Anesthesiologist: Boris ASA Score: ASA 2 Mallampati Score Class I : Soft palate, uvula, fauces, pillars visible Class II: Soft palate, uvula, fauces visible Class III: Soft palate, base of uvula visible Class IV: Only hard plate visible Mallampati Classification: Class II Surgeon: Inessa Diagnosis: Symptomatic cholelithyasis Surgical Procedure: Laparoscopic cholecystectomy Anesthesia History: none Social History: current smoker Family History: no anesthesia problems Allergies: Coded Allergies: No Known Allergies (Unverified , 08/13/14) Patient NPO?: Yes NPO Date: Aug 09, 2018 NPO Time: 0000 Past Medical History Cardiovascular: Reports: HTN - mild; Denies: CAD, [place], valve dz, arrhythmia, other Pulmonary: Denies: asthma, COPD, NEVA, other Gastrointestinal/Genitourinary: Reports: GERD, other - IBS; Denies: CRI, ESRD Neurologic/Psychiatric: Reports: depression/anxiety; Denies: dementia, CVA, TIA, other Endocrine: Denies: DM, hypothyroidism, steroids, other HEENT: Denies: cataract (L), cataract (R), glaucoma, [place] (L), [place] (R), other Hematology/Immune: Denies: anemia, DVT, bleeding disorder, other Musculoskeletal/Integumentary: Denies: OA, RA, DJD, DDD, edema, other Other: other - overweight PMH Narrative: as above admitted with episode of recurrent abdominal pain PSxH Narrative: L partial mastectomy for breast CA Anesthesia Pre-op Phys. Exam Physician Exam Last Vital Signs Date Time Temp Pulse Resp B/P (MAP) Pulse Ox O2 Delivery O2 Flow Rate FiO2 08/09/18 09:00 Room Air 08/09/18 00:33 99.7 84 17 110/62 (78) 99 Constitutional: NAD Neurologic: CN 2-12 intact Cardiovascular: RRR, no M/R/G Respiratory: CTA Gastrointestinal: S/NT/ND Airway Exam Mallampati Score: Class II MO: full Neck: flexible ROM: full Teeth: missing Dentures: no upper, no lower Anesthesia Pre-op A/P Labs Hematology Test 08/09/18 06:56 White Blood Count 5.8 K/UL (4.8-10.8) Red Blood Count 4.56 M/UL (4.20-5.40) Hemoglobin 14.0 G/DL (12.0-16.0) Hematocrit 40.4 % (37.0-47.0) Mean Corpuscular Volume 89 FL (80-99) Mean Corpuscular Hemoglobin 30.7 PG (27.0-31.0) Mean Corpuscular Hemoglobin Concent 34.6 G/DL (32.0-36.0) Red Cell Distribution Width 10.1 % (11.6-14.8) L Platelet Count 85 K/UL (150-450) L Mean Platelet Volume 11.2 FL (6.5-10.1) H Neutrophils (%) (Auto) % (45.0-75.0) Lymphocytes (%) (Auto) % (20.0-45.0) Monocytes (%) (Auto) % (1.0-10.0) Eosinophils (%) (Auto) % (0.0-3.0) Basophils (%) (Auto) % (0.0-2.0) Differential Total Cells Counted 100 Neutrophils % (Manual) 83 % (45-75) H Lymphocytes % (Manual) 11 % (20-45) L Monocytes % (Manual) 5 % (1-10) Eosinophils % (Manual) 1 % (0-3) Basophils % (Manual) 0 % (0-2) Band Neutrophils 0 % (0-8) Platelet Estimate Decreased L Platelet Morphology Normal Red Blood Cell Morphology Normal Coagulation Test 08/09/18 06:56 Prothrombin Time 13.6 SEC (9.30-11.50) H Prothromb Time International Ratio 1.3 (0.9-1.1) H Activated Partial Thromboplast Time 24 SEC (23-33) Chemistry Test 08/09/18 06:56 Sodium Level 139 MMOL/L (136-145) Potassium Level 3.5 MMOL/L (3.5-5.1) Chloride Level 106 MMOL/L (98-107) Carbon Dioxide Level 24 MMOL/L (21-32) Anion Gap 9 mmol/L (5-15) Blood Urea Nitrogen 4 mg/dL (7-18) L Creatinine 0.8 MG/DL (0.55-1.30) Estimat Glomerular Filtration Rate > 60 mL/min (>60) Glucose Level 112 MG/DL (74-106) H Calcium Level 8.0 MG/DL (8.5-10.1) L Total Bilirubin 1.6 MG/DL (0.2-1.0) H Direct Bilirubin 0.4 MG/DL (0.0-0.3) H Aspartate Amino Transf (AST/SGOT) 142 U/L (15-37) H Alanine Aminotransferase (ALT/SGPT) 273 U/L (12-78) H Alkaline Phosphatase 36 U/L (46-116) L Total Protein 6.5 G/DL (6.4-8.2) Albumin 3.2 G/DL (3.4-5.0) L Globulin 3.3 g/dL Albumin/Globulin Ratio 1.0 (1.0-2.7) Lipase 106 U/L (73-393) Studies Pre-op Studies: EKG - NSR Risk Assessment & Plan Assessment: ASA 2 Plan: GA with ETT Status Change Before Surgery: No Pre-Antibiotics Drug: as scheduled Sammy Escalante MD Aug 09, 2018 10:12
[2018-08-09] MEDS ORDERED: Zemuron 50mg/5ml Inj IV ONE (13:08)
[2018-08-09] MEDS ORDERED: Propofol 200mg/20ml IV ONE (13:10)
[2018-08-09] MEDS ORDERED: fentaNYL 100 mcg/2 mL IV ONE ×2 (13:10→14:03)
[2018-08-09] MEDS ORDERED: Lidocaine 1% MPF 10mg/ml 5ml ONE ×2 (13:10→13:11)
[2018-08-09] MEDS ORDERED: Midazolam 2mg/2ml Inj ONE ×2 (13:11→13:56)
[2018-08-09] MEDS ORDERED: Bupivacaine w/Epi 0.25% 30ml Vial INJ ONE (13:18)
[2018-08-09] MEDS ORDERED: Iothalamate Meglumine 60% 30ML INJ ONE (13:19)
[2018-08-09] MEDS ORDERED: NS Irrig 1000ml IRRIG ONE (14:00)
[2018-08-09] MEDS ORDERED: Dexamethasone 4mg/ml vial ONE (14:13)
[2018-08-09] MEDS ORDERED: Metoclopramide 10mg/2ml Inj ONE (14:13)
[2018-08-09] MEDS ORDERED: Neostigmine 1mg/ml 10ml Inj ONE (14:27)
[2018-08-09] MEDS ORDERED: Glycopyrrolate 0.2mg/ml 1ml Vial ONE (14:27)
[2018-08-09] MEDS ORDERED: LORazepam Inj 2mg/ml 1ml IV PRN (14:45)
[2018-08-09] MEDS ORDERED: Acetaminophen (Non formulary) 100 ML IV ONE (14:45)
[2018-08-09] MEDS ORDERED: Hydromorphone 0.5mg/0.5ml inj IVP PRN (14:45)
--- NOTE | 2018-08-09 14:56 | Brief Operative Note ---
Immediate Post Operative Note Operative Note Pre-op Diagnosis: acute gallstone pancreatitis Procedure: lap [place] Post-op Diagnosis: same as pre-op Surgeon: jayesh Anesthesiologist: sidney lechuga Anesthesia: general, local Specimen: yes Complications: none Condition: stable Fluids: see records Estimated Blood Loss: minimal Drains: none Implant(s) used?: No Bernabe Moon Aug 09, 2018 14:56
[2018-08-09] MEDS ORDERED: Morphine Sulfate 4mg/ml Inj (IV/IM USE ONLY) IVP PRN (15:00)
[2018-08-09] MEDS ORDERED: Ketorolac 30mg Inj IV SCH (15:00)
[2018-08-09] MEDS ORDERED: Morphine Sulfate 2mg/ml Inj IVP PRN ×2 (15:00)
[2018-08-09] MEDS ORDERED: Milk of Magnesia 30ml Ud ORAL PRN (15:00)
--- NOTE | 2018-08-09 15:04 | Immediate Post-Op Evaluation ---
Immediate Post-Op Evalulation Immediate Post-Op Evalulation Procedure: Laparoscopic cholecystectomy Date of Evaluation: Aug 09, 2018 Time of Evaluation: 14:58 IV Fluids: LR 1000 ml Estimated Blood Loss: minimal Blood Pressure Systolic: 136 Blood Pressure Diastolic: 66 Pulse Rate: 89 Respiratory Rate: 18 O2 Sat by Pulse Oximetry: 100 Temperature (Fahrenheit): 97.4 Pain Score (1-10): 0 Nausea: No Vomiting: No Complications none Patient Status: awake, reacts, patent, extubated Hydration Status: adequate Drug: zosyn 3.3.75 gm Given Within 1 Hr of Incision: Yes Time Given: 14:00 Lizzy West CRNA Aug 09, 2018 15:04
[2018-08-09] MEDS: Ketorolac 30mg Inj IV SCH ×2 (17:08→23:53)
--- NOTE | 2018-08-09 20:00 | Operative Note - Dictated ---
DATE OF OPERATION: 08/09/2018 PREOPERATIVE DIAGNOSIS: Acute gallstone pancreatitis. POSTOPERATIVE DIAGNOSIS: Acute gallstone pancreatitis. OPERATION PERFORMED: Laparoscopic cholecystectomy. ATTENDING SURGEON: Bernabe Moon M.D. WEATHERIZATION INSTALLER: None. ANESTHESIOLOGIST: Lizzy West CRNA ANESTHESIA: General EXPERIMENTAL MACHINIST. ESTIMATED BLOOD LOSS: Minimal. IV FLUIDS: Please see anesthesia records. COMPLICATIONS: None. DRAINS: None. SPECIMENS: Gallbladder sent to pathology for review. COUNTS: Sponge and needle count correct x2. WOUND CLASSIFICATION: Class 3. ANTIBIOTICS: The patient on scheduled IV Zosyn. INDICATIONS FOR PROCEDURE: This is a 67-year-old female who presented to the Emergency Department of [facility] complaining of worsening abdominal pain. The patient was identified to have elevated lipase and LFTs. On examination, the patient had focal right upper quadrant tenderness and complained of radiation of pain to the back. She had a CT scan, which identified cholelithiasis and an MRI of the abdomen which identified cholelithiasis, no choledocholithiasis, gallbladder wall thickening. Given these findings, the patient was diagnosed with acute gallstone pancreatitis. The patient's symptoms began to resolve and laboratories improved and surgical versus nonsurgical options were discussed with the patient and offered to her. The patient states that she has significant anxiety and would not be able to tolerate the potential of waiting for surgery knowing the possible risks of a repeat attack. The patient expressed strong desire to proceed with surgical intervention prior to discharge and therefore was scheduled for cholecystectomy. Risks, benefits, and alternatives were discussed. The patient expressed understanding and consented to surgery. OPERATIVE NOTE: The patient was taken to the operating room and placed on the operative table in supine position with bilateral arms out. All bony prominences were well padded. SCDs were placed. Preoperative time-out was taken identifying the patient, procedure, operative staff, and surgical staff. No Nathan catheter was inserted given the patient voided prior to entering the operating room. General anesthesia was induced and the patient was intubated. The patient was already on scheduled IV antibiotics. An infraumbilical incision was made using the patient's prior scar line and carried down to the fascia, which was elevated and incised. Entry into the abdomen was identified using open Kwadwo technique without complication. A 12-mm Kwadwo trocar was inserted and the abdomen was insufflated to 12 to 15 mmHg. The patient tolerated the insufflation well. The patient was placed in the reverse Trendelenburg position with left side down. Secondary trocars were placed under direct visualization beginning with a 12 mm subxiphoid epigastric port followed by two 5 mm right subcostal ports. No injury from secondary trocar placement noted. The gallbladder was easily identified and the dome was grasped using most lateral port. The dome was retracted over the liver and omental adhesions. Attachments of the gallbladder were taken down using blunt dissection. The infundibulum was then identified, grasped, and retracted towards the right lower quadrant. The cystic duct and artery were then slowly and and circumferentially dissected. Critical view was obtained and the cystic artery was then doubly clipped and divided. The only remaining structure entering into the infundibulum was the cystic duct. Cystic duct was doubly clipped and divided. The remaining gallbladder was taken off the liver bed using electrocautery without complication. The gallbladder was placed in the endoscopic retrieval bag and removed using the epigastric port site. The abdomen was inspected, noted to be hemostatic without any complications. At this time, we began conclusion of our procedure. Secondary trocars were removed under direct visualization. The abdomen was desufflated and the umbilical trocar site removed. The epigastric and infraumbilical 12 mm fascial port sites were closed using [id number] Vicryl sutures. The remaining skin incisions were reapproximated using 4-0 Monocryl interrupted sutures. Skin glue and Steri-Strips were applied. The patient was extubated and taken to postanesthetic care unit in stable condition. Bernabe Moon M.D. DR: LILLIE JOB#: [id number] CC:
--- NOTE | 2018-08-09 23:23 | General Progress Note ---
Assessment/Plan Assessment/Plan Assessment - acute pancreatitis - cholelithiasis - resolving LFT flare Recommendations - lap [place] - follow lab / symptoms Subjective Allergies: Coded Allergies: No Known Allergies (Unverified , 08/13/14) Subjective seen this am pre op felt well no abd pain NPO for surgery d/w Dr. Moon Objective Last 24 Hour Vital Signs Date Time Temp Pulse Resp B/P (MAP) Pulse Ox O2 Delivery O2 Flow Rate FiO2 08/09/18 21:00 Room Air 08/09/18 20:13 88 18 118/70 (86) 95 08/09/18 15:48 97.9 83 16 130/64 99 Nasal Cannula 3 08/09/18 15:40 83 16 130/64 99 Nasal Cannula 3 08/09/18 15:30 80 15 134/62 99 Nasal Cannula 3 08/09/18 15:20 82 14 135/62 100 Nasal Cannula 3 08/09/18 15:15 77 16 124/60 100 Nasal Cannula 3 08/09/18 15:08 78 16 128/57 100 Simple Mask 8 08/09/18 15:04 89 18 100 08/09/18 15:03 79 16 129/62 100 Simple Mask 8 08/09/18 14:58 97.4 88 16 128/62 100 Simple Mask 8 08/09/18 12:00 98.8 78 20 127/73 (91) 97 08/09/18 09:00 Room Air 08/09/18 08:05 98.9 99 18 133/80 (97) 97 08/09/18 00:33 99.7 84 17 110/62 (78) 99 Intake and Output 08/08/18 08/09/18 18:59 06:59 Intake Total 1235.0 ml Balance 1235.0 ml IV Total 1235.0 ml # Voids 3 3 Laboratory Tests 08/09/18 06:56: White Blood Count 5.8, Red Blood Count 4.56, Hemoglobin 14.0, Hematocrit 40.4, Mean Corpuscular Volume 89, Mean Corpuscular Hemoglobin 30.7, Mean Corpuscular Hemoglobin Concent 34.6, Red Cell Distribution Width 10.1L, Platelet Count 85L, Mean Platelet Volume 11.2H, Neutrophils (%) (Auto) , Lymphocytes (%) (Auto) , Monocytes (%) (Auto) , Eosinophils (%) (Auto) , Basophils (%) (Auto) , Differential Total Cells Counted 100, Neutrophils % (Manual) 83H, Lymphocytes % (Manual) 11L, Monocytes % (Manual) 5, Eosinophils % (Manual) 1, Basophils % ( Manual) 0, Band Neutrophils 0, Platelet Estimate DecreasedL, Platelet Morphology Normal, Red Blood Cell Morphology Normal, Prothrombin Time 13.6H, Prothromb Time International Ratio 1.3H, Activated Partial Thromboplast Time 24 , Sodium Level 139, Potassium Level 3.5, Chloride Level 106, Carbon Dioxide Level 24, Anion Gap 9, Blood Urea Nitrogen 4L, Creatinine 0.8, Estimat Glomerular Filtration Rate > 60, Glucose Level 112H, Calcium Level 8.0L, Total Bilirubin 1.6H, Direct Bilirubin 0.4H, Aspartate Amino Transf (AST/SGOT) 142H, Alanine Aminotransferase (ALT/SGPT) 273H, Alkaline Phosphatase 36L, Total Protein 6.5, Albumin 3.2L, Globulin 3.3, Albumin/Globulin Ratio 1.0, Lipase 106 Height (Feet): 5 Height (Inches): 1.00 Weight (Pounds): 176 Objective WDWN NCAT supple CTA RRR Soft NT ND no edema non focal Roel Jefferson MD Aug 09, 2018 23:23
[2018-08-10 04:00] VITALS: BP 132/79
[2018-08-10] MEDS: Piperacillin/Tazobactam 3.375 GM in NS 110 ML IVPB SCH (05:03)
[2018-08-10] MEDS: Ketorolac 30mg Inj IV SCH (05:50)
[2018-08-10] MEDS ORDERED: NS Irrig 1000ml ONE (07:00)
[2018-08-10] MEDS ORDERED: Sterile Water Irrig 1000ml IRRIG ONE (07:00)
[2018-08-10 08:00] VITALS: BP 137/76
[2018-08-10] MEDS: Tamoxifen 10mg tab ORAL SCH (08:40)
[2018-08-10 09:44] VITALS: BP 132/68
--- NOTE | 2018-08-10 09:44 | 48 Hour Post Anesthesia Eval ---
Post Anesthesia Evaluation Procedure: Laparoscopic cholecystectomy Date of Evaluation: Aug 10, 2018 Time of Evaluation: 09:42 Blood Pressure Systolic: 132 0: 68 Pulse Rate: 74 Respiratory Rate: 20 Temperature (Fahrenheit): 97.5 O2 Sat by Pulse Oximetry: 98 Airway: patent Nausea: No Vomiting: No Pain Intensity: 2 Hydration Status: adequate Cardiopulmonary Status: stable Mental Status/LOC: patient returned to baseline Follow-up Care/Observations: n/a Post-Anesthesia Complications: none Follow-up care needed: N/A Sammy Escalante MD Aug 10, 2018 09:44
[2018-08-10] MEDS ORDERED: NORCO 5-325 TA1 EACH ORAL (11:16)
[2018-08-10] MEDS ORDERED: COLACE100 MG ORAL (11:17)
[2018-08-10] MEDS ORDERED: D5NS 1,000 ML IV SCH (15:15)
--- NOTE | 2018-08-11 08:03 | Discharge Summary ---
Discharge Summary Discharge Summary _ DATE OF ADMISSION: 08/08/2018 DATE OF DISCHARGE: 08/10/2018 DISCHARGED BY: Dr. Calvin Escalera CONSULTANTS: Dr. Bernabe Jefferson BRIEF HOSPITAL COURSE: Patient is a 67-year-old female, with a history of breast cancer and irritable bowel syndrome, who presented with complaints of 1 day severe midepigastric abdominal pain. According to the patient, she has history of IBS and occasionally gets episodes of diarrhea and constipation as well as cramping. Pain was significantly different and was more severe than a similar episode approximately a week ago that resolved spontaneously. Because of severity of symptoms, she presented to ED for further evaluation. On evaluation at the ED, blood work did not show any leukocytosis, hemoglobin and hematocrit were stable. However, blood work showed elevated lipase levels of 1381. LFTs were elevated. Alkaline phosphatase 34. Urinalysis was negative. CAT scan of the abdomen and pelvis showed cholelithiasis. She was then admitted for evaluation of acute pancreatitis suspect secondary to gallstones. She also had MRI of the abdomen that showed no evidence of choledocholithiasis or biliary duct dilatation. There was gallbladder wall thickening with cholelithiasis. She was placed on n.p.o. she was given IV hydration. She was given pain management. Surgical and GI consultation were obtained. Patient was feeling better after an overnight fast. Lipase showed a rapid decline. Patient may have possibly passed a stone. She was given surgical and nonsurgical options for treatment. Patient preferred to have surgery done.. On 08/09/2018, she then underwent laparoscopic cholecystectomy. She tolerated procedure well. Postoperatively, diet was advanced. She was given PT evaluation and therapy. She was eventually cleared for discharge home. FINAL DIAGNOSES: Acute gallstone pancreatitis this post laparoscopic cholecystectomy Cholelithiasis Transaminitis DISPOSITION: Patient was discharged home. DISCHARGE MEDICATIONS: Refer to Discharge Medication List. DISCHARGE INSTRUCTIONS: Follow-up in a week. I have been assigned to dictate discharge summary on this account, and I was not involved in the patient's management. Sanjuana Kaur NP Aug 11, 2018 08:03
== END 2018-08-10 11:30 | disposition home or self-care (01) | DRG 419 ==
LOC: EDBD 22:35 → EMR 23:00 → 4E 08-08 00:25 → EDBEDREQ 08-08 02:05 → 4E 08-08 03:22
PROC: 0FT44ZZ Resection of Gallbladder, Percutaneous Endoscopic Approach (ICD-10-PCS; principal; 2018-08-09 14:30)
DX: K85.10 Biliary acute pancreatitis without necrosis or infection (principal); K80.20 Calculus of gallbladder without cholecystitis without obstruction; R74.0 Nonspecific elevation of levels of transaminase and lactic acid dehydrogenase [LDH]; K58.9 Irritable bowel syndrome, unspecified; Z85.3 Personal history of malignant neoplasm of breast; Z86.19 Personal history of other infectious and parasitic diseases
CPT/HCPCS: 36415; 74177; 74183; 80053; 81003; 82248; 82962; 83690; 84484; 85007; 85025; 85610; 85730; 87086; 94003; 94150; 99285; A9585; J2250; J2405; J2710; J2765

== ENCOUNTER → 2020-03-06 | Outpatient (CLI) | payer MEDICARE, BC ==
[~2020-03-06] MED LIST changes: +AMBIEN10 M1 ORAL; +COLACE100 MG ORAL; +LORAZEPAM1 MG ORAL; +NORCO 5-325 TA1 EACH ORAL; +TAMOXIFEN CITRA10 MG ORAL
--- NOTE | 2020-03-06 10:46 | Diagnostic Imaging Report ---
Indication: Cough Technique: 2 views of the chest Comparison: None Findings: Lungs and pleural spaces are clear. The heart size is normal. The bones are unremarkable. No significant interim change. Impression: Negative
== END | disposition home or self-care (01) ==
LOC: RAD 08:18
DX: Z01.818 Encounter for other preprocedural examination (principal); R05 Cough
CPT/HCPCS: 71046